=== PATIENT | female | born 1990 | race Caucasian/White ===

== ENCOUNTER 2016-10-10 22:45 | Emergency (ER) | payer OTHER ==
[~2016-10-10 22:45] MED LIST: CILOXAN 0.50 GTT/1 B OPH; ESCITALOPRAM10 MG PO; NEXIUM 40MG40 MG PO; TERBINAFINE HY250 MG PO; ZANTAC 300300 MG PO
--- NOTE | 2016-10-11 00:14 | ED GENERAL ADULT ---
History of Present Illness General Chief Complaint: General Adult Stated Complaint: SLATER, BACK ACHE, CONGESTED Source: patient Exam Limitations: no limitations Vital Signs & Intake/Output Vital Signs & Intake/Output Vital Signs Date Time Temp Pulse Resp B/P Pulse O2 O2 Flow FiO2 Ox Delivery Rate 10/11 0116 98.2 80 18 130/86 97 Room Air 10/10 2250 98.5 81 20 136/88 98 Room Air ED Intake and Output 10/11 0000 10/10 1200 Intake Total Output Total Balance Patient 185 lb Weight Allergies Coded Allergies: NO KNOWN ALLERGIES (10/15/11) Reconcile Medications Escitalopram Oxalate 10 MG TAB 1 TAB PO DAILY MENTAL HEALTH (Reported) Esomeprazole (Nexium) 40 MG CAP 1 CAP PO DAILY GI (Reported) Methylprednisolone. (Medrol) 4 MG TAB.DS.PK 1 DP PO AD headache/sinusitis Metoclopramide HCl (Reglan) 10 MG TABLET 1 TAB PO 4 TIMES/DAY PRN headache/ nausea Terbinafine Hydrochloride 250 MG TAB 1 TAB PO DAILY ANTIFUNGAL (Reported) Triage Note: PER PT SLATER, BACK ACHE VOMITTING SINCE AM UNSURE OF FEVER TYLENOL AND MOTRIN, LAST MOTRIN 2100. REPORTS IUD IN PLACE DOES NOT GET MENSES. Triage Nurses Notes Reviewed? yes : No Patient currently breastfeeds: No HPI: Patient is a 25-year-old female presents complaining of headache, congestion, back pain, 2 episodes of vomiting. Patient reports that she has been sick for approximately 3 weeks. Patient was initially diagnosed with influenza. Patient was diagnosed with sinusitis on Friday and started on Augmentin. Patient has continued with head pressure that is radiating to her right ear. Today patient had 2 episodes of vomiting. Back pain onset after the vomiting. Positive sick contacts at home. Patient denies fevers, chills, abdominal pain. (DYLON BLACKMON,SHAILESH) Past History Travel History Traveled to [place] past 21 day No Medical History Any Pertinent Medical History? see below for history Neurological: BELLS PALSY EENT: NONE Cardiovascular: NONE Respiratory: NONE Gastrointestinal: GERD, hiatal hernia, PEPTIC ULCER Hepatic: NONE Renal: acute tubular necrosis Musculoskeletal: NONE Psychiatric: NONE Endocrine: NONE Blood Disorders: NONE Cancer(s): NONE JEWEL DIAMETER GAUGER/Reproductive: NONE Tetanus Vaccine: 05/21/12 Surgical History Surgical History: non-contributory Psychosocial History What is your primary language Swedish Tobacco Use: Never used ETOH Use: denies use Illicit Drug Use: denies illicit drug use Family History Hx Contributory? No (SHAILESH AREVALO) Review of Systems Review of Systems Constitutional: Denies: chills, fever. EENTM: Reports: ear pain, nasal congestion. Respiratory: Reports: cough. Denies: short of breath, sputum production. Cardiovascular: Denies: chest pain. GI: Reports: nausea, vomiting. Denies: abdominal pain. Genitourinary: Reports: no symptoms. Musculoskeletal: Reports: no symptoms. Skin: Reports: no symptoms. Neurological/Psychological: Reports: headache. Hematologic/Endocrine: Reports: no symptoms. Immunologic/Allergic: Reports: no symptoms. (SHAILESH AREVALO) Physical Exam Physical Exam General Appearance: well developed/nourished, alert, awake Head: Bilateral maxillary and frontal sinus tenderness Eyes: Bilateral: normal appearance, PERRL, EOMI. Ears, Nose, Throat: moderate cerumen bilateral external auditory canals. Tympanic membranes normal, pharynx normal. Neck: normal inspection, supple, full range of motion Respiratory: normal breath sounds, chest non-tender, no respiratory distress, lungs clear Cardiovascular: regular rate/rhythm Gastrointestinal: soft, non-tender Back: normal inspection, normal range of motion, no vertebral tenderness Extremities: normal inspection, normal range of motion Neurologic/Psych: no motor/sensory deficits, awake, alert, oriented x 3, normal gait, normal mood/affect Skin: intact, normal color, warm/dry Lymphatic: no anterior cervical carlos Core Measures ACS in differential dx? No CVA/TIA Diagnosis: No Severe Sepsis Present: No Septic Shock Present: No (SHAILESH AREVALO) Progress Differential Diagnoses I considered the following diagnoses in my evaluation of the patient: Sinusitis, tension headache, migraine, meningitis Plan of Care: Current Medications Sig/Beatris Start time Last Medication Dose Stop Time Status Admin Ketorolac 30 MG ONCE ONE 10/11 29 UNVr Tromethamine 10/11 30 (Toradol) Metoclopramide HCl 10 MG ONCE ONE 10/11 29 UNVr (Reglan) 10/11 3010/11/2016 1:05:53 AM: Patient reports significant improvement in her headache status post Reglan and Toradol. Patient nontoxic appearing, tolerating oral fluids appropriately. Appears stable for discharge. Labs and imaging deferred secondary to exam (SHAILESH AREVALO) Initial ED EKG: none (SHAILESH AREVALO) Departure Departure Time of Disposition: 101 Disposition: HOME OR SELF CARE Condition: Stable Clinical Impression Primary Impression: Sinusitis Qualifiers: Sinusitis location: unspecified location Chronicity: acute Recurrence: not specified as recurrent Qualified Code: J01.90 - Acute sinusitis, unspecified Referrals: BARTOLO SULLIVAN,FREDDY FARRELL (PCP/Family) Additional Instructions: Drink plenty fluids and rest. Continue the Augmentin as previously directed. Follow-up with your primary care doctor within 1 week for recheck and further evaluation. Return to the emergency department unable to say hydrated or worsening of symptoms. Departure Forms: Customer Survey General Discharge Information Prescriptions: Current Visit Scripts Methylprednisolone. (Medrol) 1 DP PO AD #1 DP Metoclopramide HCl (Reglan) 1 TAB PO 4 TIMES/DAY PRN headache/nausea #12 TAB (SHAILESH AREVALO) PA/MINIATURE SET BUILDER Co-Sign Statement Statement: ED Attending supervision documentation- [] I saw and evaluated the patient. I have also reviewed all the pertinent lab results and diagnostic results. I agree with the findings and the plan of care as documented in the PA's/MINIATURE SET BUILDER's documentation. x I have reviewed the ED Record and agree with the PA's/MINIATURE SET BUILDER's documentation. [] Additions or exceptions (if any) to the PAs/MINIATURE SET BUILDER's note and plan are summarized below: [] (CEDRIC SULLIVAN,GEMA) Critical Care Note Critical Care Note Critical Care Time: non-applicable (SHAILESH AREVALO)
[2016-10-11] MEDS ORDERED: MEDROL4 M2 PO (01:04)
[2016-10-11] MEDS ORDERED: REGLAN10 M1 PO (01:04)
[2016-10-11 01:16] VITALS: BP 130/86
== END 2016-10-11 01:18 ==
LOC: ERH 22:45
DX: J32.9 Chronic sinusitis, unspecified (principal)
CPT/HCPCS: 96374; 96375; J1885; J2765

== ENCOUNTER 2017-12-01 14:11 | Emergency (ER) | payer OTHER ==
[~2017-12-01] VITALS: Ht 160 cm; Wt 81.6 kg
[~2017-12-01 14:11] MED LIST changes: +MEDROL4 M2 PO; +REGLAN10 M1 PO
[2017-12-01 14:21] VITALS: BP 121/85
== END 2017-12-01 17:27 | disposition admitted as inpatient to this hospital (09) ==
LOC: ERH 14:11
DX: R11.2 Nausea with vomiting, unspecified (principal); R19.7 Diarrhea, unspecified
CPT/HCPCS: 81001; 81025; 99281